=== PATIENT | female | born 1960 | race Caucasian/White ===

== ENCOUNTER 2021-08-18 16:47 | Emergency (ER) | payer OTHER ==
[~2021-08-18] VITALS: Ht 162.5 cm; Wt 55.3 kg
[~2021-08-18 16:47] MED LIST: VICODIN ES 7501 TAB PO
[2021-08-18 17:55] LABS: BASO % 0.1 % (0.0-1.0); EOS % 0.4 % (1.0-4.0); HEMATOCRIT 39.4 % (37.0-47.0); LYMPH # 1.4 10*3/uL (1.3-4.4); LYMPH % 13.1 % (27.0-41.0); MEAN CELL VOLUME 90.2 fl (81.0-99.0); MEAN CORPUSCULAR HGB 31.4 pg (27.0-31.0); MEAN CORPUSCULAR HGB CONC 34.8 g/dl (33.0-37.0); MEAN PLATELET VOLUME 10.7 fl (9.6-12.3); MONO # 0.8 10*3/uL (0.1-1.0); MONO % 7.2 % (3.0-9.0); NEUT # 8.3 10*3/uL (2.3-7.9); NEUT % 78.9 % (47.0-73.0); PLATELET COUNT AUTOMATED 230 10*3/uL (130-400); RED BLOOD COUNT 4.37 10*6/uL (4.10-5.10); WHITE BLOOD COUNT 10.5 10*3/uL (4.8-10.8)
[2021-08-18 18:12] LABS: ALBUMIN 3.7 gm/dl (3.1-4.5); ALKALINE PHOSPHATASE 69 U/L (45-117); BUN 18 mg/dl (7-24); CHLORIDE 106 mmol/L (98-107); CREATININE 1.12 mg/dL (0.55-1.02); LIPASE 50 U/L (73-393); POTASSIUM 3.2 mmol/L (3.5-5.1); SGOT/AST 8 IU/L (3-35); SGPT/ALT 24 U/L (12-78); SODIUM 136 mmol/L (136-145); TOTAL PROTEIN 7.2 gm/dL (6.4-8.2)
[2021-08-18 19:48] LABS: BILIRUBIN Negative (Negative); BLOOD 1+ (Negative); CLARITY Clear (Clear); COLOR Yellow (Yellow); GLUCOSE Negative (Negative); KETONE Trace (Negative); LEUKO ESTERASE 2+ (Negative); NITRITE Negative (Negative); UROBILINOGEN 0.2 E.U./dl (0.0-1.0)
[2021-08-18 19:54] LABS: BACTERIA TRACE; WBC TNTC wbc/hpf (0-5)
[2021-08-18] MEDS ORDERED: METRONIDAZOLE500 M1 PO (20:18)
[2021-08-18] MEDS ORDERED: DOXYCYCLINE HY100 M3 PO (20:53)
[2021-08-18] MEDS ORDERED: FLOMAX0.4 MG PO (22:26)
[2021-08-18] MEDS ORDERED: HYDROCODONE-AC1 EAC1 PO (22:26)
== END 2021-08-18 22:53 | disposition home or self-care (01) ==
LOC: ED 16:47
PROVIDERS: Physician Assistant
DX: N39.0 Urinary tract infection, site not specified (principal); N13.30 Unspecified hydronephrosis; A59.9 Trichomoniasis, unspecified; N23 Unspecified renal colic; F17.200 Nicotine dependence, unspecified, uncomplicated